=== PATIENT | male | born 1990 | race Two or more races ===

== ENCOUNTER 2025-04-12 20:08 | Emergency (ER) | payer SELFPAY ==
[~2025-04-12] VITALS: Ht 193 cm; Wt 102.0 kg
[2025-04-12 20:22] VITALS: O2SAT 98
[2025-04-12] MEDS ORDERED: CHLORDIAZEPOXIDE 25MG CAPSULE PO ONE (20:30)
[2025-04-12] MEDS ORDERED: KEPP500 MT (21:21)
[2025-04-12 22:21] VITALS: BP 118/76; PULSE 92; RESP 16; TEMP 36.8; O2SAT 99
[2025-04-12] MEDS: CHLORDIAZEPOXIDE 25MG CAPSULE PO NR (22:28)
== END 2025-04-12 22:31 | disposition home or self-care (01) ==
LOC: ER 20:08
DX: F10.229 Alcohol dependence with intoxication, unspecified (principal); F10.239 Alcohol dependence with withdrawal, unspecified; F19.10 Other psychoactive substance abuse, uncomplicated; R56.9 Unspecified convulsions; Z59.00 Homelessness unspecified; Y90.9 Presence of alcohol in blood, level not specified
CPT/HCPCS: 99283